=== PATIENT | male | born 1950 | race Caucasian/White ===

== ENCOUNTER 2016-11-17 13:11 | Observation (INO) | payer OTHER, BC ==
[~2016-11-17] VITALS: Ht 180.3 cm; Wt 109.1 kg
[~2016-11-17 13:11] MED LIST: ASPIRIN EC325 MG PO; ATORVASTATIN CA40 MG PO; ATORVASTATIN CA80 MG PO; BUPROPION HCL150 M2 PO; CIPRO750 MG PO; CLINDAMYCIN HC300 MG PO; CLOPIDOGREL75 MG PO; COLACE100 MG PO; DESYREL100 MG PO; DOCUSATE SODIU100 MG PO; GLIPIZIDE10 MG PO; HUMULIN N100 UNITS/ SQ; HYDROXYZINE PAM25 MG PO; KADIAN30 MG PO; KETOTIFEN FUMARA5 M1 BOTH EYES; LISINOPRIL10 MG PO; LISINOPRIL20 MG PO; LITE COAT ASPI325 M1 PO; LOPRESSOR25 MG PO; LYRICA200 MG PO; METHOCARBAMOL500 MG PO; METHYLPHENIDATE10 M1 PO; METHYLPHENIDATE5 MG PO; METOPROLOL TART25 MG PO; MORPHINE SULFAT30 M1 PO; MORPHINE SULFAT30 M2 PO; NITROGLYCERIN0.4 MG SL; NOVOLIN N100 UNITS/ SC; PANTOPRAZOLE SO40 MG PO; PAROXETINE HCL20 MG PO; PAROXETINE HCL40 MG PO; PERCOCET 5/31 TABLET PO; PLAVIX75 MG PO; PROTONIX40 MG PO; RANITIDINE HCL150 MG PO; SIMVASTATIN80 MG PO; TERAZOSIN HCL2 MG PO; TERBINAFINE HCL30 GM TP; TESTOSTERO200 MG/12 IM; TRAZODONE HCL100 MG PO; WELLBUTRIN SR150 MG PO; ZADITOR 0.100 DROP/5 BOTH EYES
[2016-11-17 13:45] LABS: EOSINOPHIL (%) 2.3 % (0-5); EOSINOPHIL COUNT 0.3 K/uL (0-0.3); HEMATOCRIT 48.3 % (38.0-50.0); IMMATURE GRANULOCYTE (%) 0.4 % (0.0-0.7); IMMATURE GRANULOCYTE COUNT 0.4 K/uL; LYMPHOCYTE COUNT 2.3 K/uL (1.0-2.8); MCH 29.6 PG (29.0-34.0); MCHC 34.2 G/DL (30.0-36.0); MCV 86.7 FL (86-99); MEAN PLAT.VOLUME 9.6 uM^3 (9.0-12.4); MONOCYTE (%) 9.9 % (3-12); MONOCYTE COUNT 1.1 K/uL (0-0.8); NEUTROPHIL (%) 66.7 % (45-76); NEUTROPHIL COUNT 7.4 K/uL (1.8-6.4); PLATELET COUNT 199 K/uL (156-360); RBC DIS.WIDTH-CV 13.3 % (11.8-14.6); RBC DIS.WIDTH-SD 41.1 % (39-53); RED BLOOD COUNT 5.57 M/uL (4.00-5.50); WHITE BLOOD COUNT 11.1 K/uL (4.1-10.2)
[2016-11-17 13:59] LABS: ADD MIUA? NO; BILIRUBIN NEGATIVE; BLOOD NEGATIVE; COLOR YELLOW ((YELLOW)); GLUCOSE (STRIP) NEGATIVE; KETONES NEGATIVE; LEUKOCYTES NEGATIVE; NITRITE NEGATIVE; PROTEIN (STRIP) NEGATIVE; SPECIFIC GRAVITY 1.016 (1.000-1.030); UCUL ADDED? NO
[2016-11-17 13:59] LABS: CHLORIDE 101 mEq/L (99-109)
[2016-11-17 14:00] LABS: POTASSIUM 4.1 mEq/L (3.7-5.4); SODIUM 138 mEq/L (136-147)
[2016-11-17 14:02] LABS: GLUCOSE 102 mg/dL (70-99)
[2016-11-17 14:03] LABS: ANION GAP 9 MEQ/L (2-14)
[2016-11-17 14:04] LABS: TOTAL BILIRUBIN 0.6 mg/dL (0.0-1.0)
[2016-11-17 14:05] LABS: ALKALINE PHOSPHATASE 47 IU/L (3-129); GFR ESTIMATE (CALCULATED) 58 mL/min/
[2016-11-17 14:07] LABS: TROP-I INTERPRETATION NEGATIVE; TROPONIN-I < 0.01 ng/mL (0.0-0.30); UREA NITROGEN (BUN) 11 mg/dL (9-23)
[2016-11-17 14:51] LABS: HDL CHOLESTEROL 30 MG/DL (Desirable>=40); LDL CHOLESTEROL 32 mg/dL (Desirable<100); NON-HDL CHOLESTEROL 71 mg/dL (Desirable<160); TOTAL CHOLESTEROL 101 mg/dL (Desirable<200); TRIGLYCERIDES 193 MG/DL (Normal: <150)
[2016-11-17] MEDS ORDERED: VOLTAREN 1% GE100 GM TP (15:51)
[2016-11-17] MEDS ORDERED: DAILY VALUE1 EACH PO (15:52)
[2016-11-17] MEDS ORDERED: LITE COAT ASPI325 M1 PO (15:52)
[2016-11-17] MEDS ORDERED: KADIAN30 MG PO (15:53)
[2016-11-17 17:27] VITALS: BP 127/78
[2016-11-17 20:00] VITALS: BP 133/72
[2016-11-17 21:08] LABS: POINT-OF-CARE METER ID UU13113831
[2016-11-17] MEDS ORDERED: FLONASE16 G1 BOTH NARES (23:46)
[2016-11-17 23:53] VITALS: BP 116/65
[2016-11-18 03:47] VITALS: BP 117/68
[2016-11-18 07:16] LABS: HEMATOCRIT 49.5 % (38.0-50.0); MCH 29.3 PG (29.0-34.0); MCHC 32.9 G/DL (30.0-36.0); MEAN PLAT.VOLUME 10.3 uM^3 (9.0-12.4); PLATELET COUNT 180 K/uL (156-360); RBC DIS.WIDTH-CV 13.8 % (11.8-14.6); RBC DIS.WIDTH-SD 44.5 % (39-53); RED BLOOD COUNT 5.56 M/uL (4.00-5.50); WHITE BLOOD COUNT 9.3 K/uL (4.1-10.2)
[2016-11-18 07:40] LABS: ALKALINE PHOSPHATASE 40 IU/L (3-129); ANION GAP 7 MEQ/L (2-14); CHLORIDE 100 MEQ/L (99-109); GFR ESTIMATE (CALCULATED) > 59 mL/min/; GLUCOSE 116 mg/dL (70-99); POTASSIUM 4.3 MEQ/L (3.7-5.4); SAMPLE HEMOLYSIS CHECK 1; SAMPLE ICTERIC CHECK 0; SAMPLE LIPEMIA CHECK 0; SODIUM 137 MEQ/L (136-147); TOTAL BILIRUBIN 0.7 MG/DL (0.0-1.0); UREA NITROGEN (BUN) 9 mg/dL (9-23)
[2016-11-18 07:49] LABS: Estimated Average Glucose 154 mg/dL (70-123)
[2016-11-18 07:50] VITALS: BP 114/63
== END 2016-11-18 12:46 | disposition home or self-care (01) ==
LOC: EME 13:11 → 5WEST 16:23 → EDOF 16:23 → 5WEST 17:11
PROVIDERS: Emergency Medicine; Internal Medicine
DX: G45.9 Transient cerebral ischemic attack, unspecified (principal); I25.10 Atherosclerotic heart disease of native coronary artery without angina pectoris; Z95.1 Presence of aortocoronary bypass graft; I10 Essential (primary) hypertension; E78.00 Pure hypercholesterolemia, unspecified; K21.9 Gastro-esophageal reflux disease without esophagitis; N40.0 Benign prostatic hyperplasia without lower urinary tract symptoms; E11.65 Type 2 diabetes mellitus with hyperglycemia; E66.01 Morbid (severe) obesity due to excess calories; Z95.5 Presence of coronary angioplasty implant and graft
CPT/HCPCS: 70450; 70496; 70498; 71020; 80053; 80061; 81003; 82948; 83036; 84484; 85025; 85027; 93005; 99281; 99285; G0378; J1644; J1815